=== PATIENT | male | born 1970 | race Caucasian/White ===

== ENCOUNTER 2019-01-03 04:26 | Emergency (ER) | payer OTHER ==
[~2019-01-03] VITALS: Ht 180.3 cm; Wt 87.7 kg
[~2019-01-03 04:26] MED LIST: LISI-600 PO
[2019-01-03] MEDS ORDERED: normal saline 1000ML IV soln IVB ONE (04:40)
[2019-01-03] MEDS ORDERED: ketorolac tromethamine 15mg/ml inj. IV ONE (04:40)
[2019-01-03 04:59] LABS: BASOPHILS % (AUTO) 0.1 % (0-1); EOSINOPHILS % (AUTO) 0.2 % (0-6); HEMATOCRIT 43.2 % (42.0-52.0); HEMOGLOBIN 14.9 g/dl (14.0-17.9); LYMPHOCYTES # (AUTO) 0.9 X10'3 (1.1-4.8); MEAN CORPUSCULAR HEMOGLOBIN 32.6 PG (27.0-31.0); MEAN CORPUSCULAR HGB CONC 34.6 g/dL (33.0-36.5); MEAN CORPUSCULAR VOLUME 94.1 FL (78-98); MEAN PLATELET VOLUME 7.3 FL (7.4-10.4); MONOCYTES # (AUTO) 0.7 X10'3 (0-0.9); MONOCYTES % (AUTO) 6.7 % (2-12); NEUTROPHILS # (AUTO) 8.8 X10'3 (1.8-7.7); PLATELET COUNT 213 X10'3 (140-440); RED BLOOD COUNT 4.58 X10'6 (4.70-6.10); RED CELL DISTRIBUTION WIDTH 13.8 % (11.5-14.5); WHITE BLOOD COUNT 10.4 X10'3 (4.5-11.0)
[2019-01-03] MEDS ORDERED: morphine 4 MG/ML inj SYRINge IV ONE (05:00)
[2019-01-03 05:18] LABS: ALANINE AMINOTRANSFERASE 57 U/L (12-78); ALBUMIN 4.1 G/DL (3.4-5.0); ALBUMIN/GLOBULIN RATIO 1.1 (1.1-1.5); ALKALINE PHOSPHATASE 114 IU/L (46-116); ANION GAP 14 (8-16); ASPARTATE AMINO TRANSFERASE 48 U/L (10-37); BILIRUBIN,TOTAL 1.4 MG/DL (0.1-1.0); BLOOD UREA NITROGEN 8 MG/DL (7-18); BUN/CREATININE RATIO 6.3 (5.4-32.0); CALCIUM 9.2 MG/DL (8.5-10.1); CHLORIDE 94 MMOL/L (99-107); CREATININE 1.27 MG/DL (0.60-1.10); GLUCOSE 224 MG/DL (70-104); POTASSIUM 3.4 MMOL/L (3.5-5.1); SODIUM 134 MMOL/L (135-145); TOTAL CARBON DIOXIDE 25.9 MMOL/L (24-32); eGFR 60 ML/MIN
[2019-01-03 05:19] LABS: ETHANOL < 0.010 GM/DL (0.0-0.010); MAGNESIUM 1.7 MG/DL (1.5-2.4)
[2019-01-03 05:20] LABS: LIPASE 1882 U/L (73-393)
[2019-01-03] MEDS: morphine 2 MG/ML inj. syringe IV PRN ×3 (05:28→06:07)
[2019-01-03] MEDS ORDERED: magnesium 2GM in 50ml NS 50 ML IV ONE (05:35)
[2019-01-03] MEDS ORDERED: potassium Cl 10 mEq/100mL bag IV ONE (05:35)
[2019-01-03] MEDS ORDERED: LISI1TAB29 PO (06:01)
[2019-01-03 07:09] VITALS: BP 119/84
[2019-01-03] MEDS ORDERED: CHLO25CA10 PO (07:30)
[2019-01-03] MEDS ORDERED: chlordiazePOXIDE 25mg capsule PO ONE (07:30)
== END 2019-01-03 07:43 | disposition home or self-care (01) ==
LOC: ER 04:26
DX: K85.90 Acute pancreatitis without necrosis or infection, unspecified (principal); I10 Essential (primary) hypertension; R00.0 Tachycardia, unspecified; Z79.899 Other long term (current) drug therapy; Z87.19 Personal history of other diseases of the digestive system
CPT/HCPCS: 36415; 70496; 80053; 80320; 83690; 83735; 85025; 96365; 96366; 96375; 96376; 99284; J1885; J2270; J3475; J3480; J7030

== ENCOUNTER 2019-05-02 15:33 | Emergency (ER) | payer OTHER ==
[~2019-05-02] VITALS: Ht 180.3 cm; Wt 85.8 kg
[~2019-05-02 15:33] MED LIST changes: +CHLO25CA10 PO; -LISI-600 PO; +LISI1TAB29 PO
[2019-05-02] MEDS ORDERED: normal saline 1000ML IV soln IVB ONE (16:05)
[2019-05-02] MEDS ORDERED: ondansetron/PF 4mg/2ml inj IV ONE (16:05)
[2019-05-02] MEDS ORDERED: ketorolac trometh. 30mg/ml inj. IV ONE (16:05)
[2019-05-02] MEDS ORDERED: famotidine/PF 10 mg/ml inj IV ONE (16:05)
[2019-05-02 16:18] LABS: BASOPHILS % (AUTO) 0.5 % (0-1); EOSINOPHILS # (AUTO) 0.1 X10'3 (0-0.9); EOSINOPHILS % (AUTO) 0.8 % (0-6); HEMATOCRIT 45.3 % (42.0-52.0); HEMOGLOBIN 15.9 g/dl (14.0-17.9); LYMPHOCYTES # (AUTO) 1.5 X10'3 (1.1-4.8); LYMPHOCYTES % (AUTO) 17.9 % (21-51); MEAN CORPUSCULAR HEMOGLOBIN 32.2 PG (27.0-31.0); MEAN PLATELET VOLUME 6.3 FL (7.4-10.4); MONOCYTES # (AUTO) 0.5 X10'3 (0-0.9); MONOCYTES % (AUTO) 5.4 % (2-12); NEUTROPHILS # (AUTO) 6.4 X10'3 (1.8-7.7); NEUTROPHILS % (AUTO) 75.4 % (42-75); PLATELET COUNT 265 X10'3 (140-440); RED BLOOD COUNT 4.93 X10'6 (4.70-6.10); RED CELL DISTRIBUTION WIDTH 13.8 % (11.5-14.5); WHITE BLOOD COUNT 8.5 X10'3 (4.5-11.0)
[2019-05-02 16:39] LABS: ALANINE AMINOTRANSFERASE 99 U/L (12-78); ALBUMIN 4.4 G/DL (3.4-5.0); ALBUMIN/GLOBULIN RATIO 1.1 (1.1-1.5); ALKALINE PHOSPHATASE 118 IU/L (46-116); ANION GAP 15 (8-16); ASPARTATE AMINO TRANSFERASE 172 U/L (10-37); BILIRUBIN,TOTAL 1.4 MG/DL (0.1-1.0); BLOOD UREA NITROGEN 20 MG/DL (7-18); BUN/CREATININE RATIO 14.2 (5.4-32.0); CALCIUM 9.9 MG/DL (8.5-10.1); CHLORIDE 94 MMOL/L (99-107); CREATININE 1.41 MG/DL (0.60-1.10); GLUCOSE 190 MG/DL (70-104); LIPASE 445 U/L (73-393); SODIUM 133 MMOL/L (135-145); TOTAL CARBON DIOXIDE 23.6 MMOL/L (24-32); TOTAL PROTEIN 8.4 G/DL (6.4-8.2); eGFR 53 ML/MIN
[2019-05-02 16:47] LABS: POTASSIUM 3.6 MMOL/L (3.5-5.1)
[2019-05-02] MEDS: morphine 4 MG/ML inj SYRINge IV PRN ×2 (17:10→18:17)
[2019-05-02 17:11] LABS: CLARITY,URINE CLEAR (Clear); COLOR,URINE YELLOW (Yellow); GLUCOSE, URINE NEGATIVE (Neg); KETONES,URINE TRACE mg/dl (Neg); LEUKOCYTE ESTERASE ,URINE NEGATIVE (Neg); NITRITES, URINE NEGATIVE (Neg); OCCULT BLOOD,URINE NEGATIVE (Neg); PH,URINE 6.5 (4.8-8.0); PROTEIN,URINE NEGATIVE (Neg); UA COLLECTION TYPE CLN CATCH MIDSTREAM; UROBILINOGEN,URINE 0.2 E.U/dL (0.2-1.0)
[2019-05-02 18:38] VITALS: BP 152/102
== END 2019-05-02 18:40 | disposition home or self-care (01) ==
LOC: ER 15:33
DX: K85.90 Acute pancreatitis without necrosis or infection, unspecified (principal); E86.0 Dehydration; N28.9 Disorder of kidney and ureter, unspecified; M54.5 Low back pain; I10 Essential (primary) hypertension; Z88.5 Allergy status to narcotic agent; Z79.899 Other long term (current) drug therapy
CPT/HCPCS: 36415; 80053; 81003; 83690; 85025; 96361; 96374; 96375; 96376; 99284; J1885; J2270; J2405; J3490; J7030

== ENCOUNTER 2019-05-03 08:46 | Inpatient (IN) | payer OTHER ==
[~2019-05-03] VITALS: Ht 180.3 cm; Wt 79.9 kg
[2019-05-03] MEDS ORDERED: normal saline 1000ML IV soln IVB ONE ×2 (09:20→10:05)
[2019-05-03 09:21] LABS: BASOPHILS % (AUTO) 0.6 % (0-1); EOSINOPHILS # (AUTO) 0.1 X10'3 (0-0.9); EOSINOPHILS % (AUTO) 1.6 % (0-6); HEMATOCRIT 41.4 % (42.0-52.0); HEMOGLOBIN 14.3 g/dl (14.0-17.9); LYMPHOCYTES # (AUTO) 1.6 X10'3 (1.1-4.8); LYMPHOCYTES % (AUTO) 24.3 % (21-51); MEAN CORPUSCULAR HEMOGLOBIN 32.1 PG (27.0-31.0); MEAN CORPUSCULAR HGB CONC 34.6 g/dL (33.0-36.5); MEAN CORPUSCULAR VOLUME 92.8 FL (78-98); MEAN PLATELET VOLUME 6.7 FL (7.4-10.4); MONOCYTES # (AUTO) 0.5 X10'3 (0-0.9); MONOCYTES % (AUTO) 6.9 % (2-12); NEUTROPHILS # (AUTO) 4.4 X10'3 (1.8-7.7); NEUTROPHILS % (AUTO) 66.6 % (42-75); PLATELET COUNT 208 X10'3 (140-440); RED BLOOD COUNT 4.46 X10'6 (4.70-6.10); RED CELL DISTRIBUTION WIDTH 13.9 % (11.5-14.5); WHITE BLOOD COUNT 6.6 X10'3 (4.5-11.0)
--- NOTE | 2019-05-03 09:25 | NUR ---
provider in with patient, vitals updated and fluid bolus started, will wait for med orders
[2019-05-03 09:30] LABS: ALANINE AMINOTRANSFERASE 73 U/L (12-78); ALBUMIN 4.1 G/DL (3.4-5.0); ALBUMIN/GLOBULIN RATIO 1.1 (1.1-1.5); ALKALINE PHOSPHATASE 113 IU/L (46-116); ANION GAP 15 (8-16); ASPARTATE AMINO TRANSFERASE 92 U/L (10-37); BILIRUBIN,TOTAL 1.4 MG/DL (0.1-1.0); BLOOD UREA NITROGEN 11 MG/DL (7-18); BUN/CREATININE RATIO 8.1 (5.4-32.0); CALCIUM 8.8 MG/DL (8.5-10.1); CHLORIDE 97 MMOL/L (99-107); CREATININE 1.35 MG/DL (0.60-1.10); GLUCOSE 226 MG/DL (70-104); POTASSIUM 3.1 MMOL/L (3.5-5.1); SODIUM 138 MMOL/L (135-145); TOTAL CARBON DIOXIDE 26.1 MMOL/L (24-32); TOTAL PROTEIN 7.7 G/DL (6.4-8.2); eGFR 56 ML/MIN
[2019-05-03 09:31] LABS: AMYLASE 62 U/L (25-115)
[2019-05-03] MEDS ORDERED: morphine 4 MG/ML inj SYRINge IV ONE (09:35)
--- NOTE | 2019-05-03 09:41 | NUR ---
asked patient to give ua patient is to painful will ask again after pain meds
[2019-05-03 09:42] LABS: LIPASE 2244 U/L (73-393)
[2019-05-03] MEDS ORDERED: morphine 2 MG/ML inj. syringe IV ONE (10:00)
--- NOTE | 2019-05-03 10:08 | NUR ---
provider ordered mor morphine patients pain still 10/10, gurading abdomin and grimicing
[2019-05-03 11:05] LABS: CLARITY,URINE CLEAR (Clear); COLOR,URINE YELLOW (Yellow); GLUCOSE, URINE 250 mg/dl (Neg); KETONES,URINE 40 mg/dl (Neg); LEUKOCYTE ESTERASE ,URINE NEGATIVE (Neg); NITRITES, URINE NEGATIVE (Neg); OCCULT BLOOD,URINE TRACE-INTACT (Neg); PROTEIN,URINE NEGATIVE (Neg); UROBILINOGEN,URINE 0.2 E.U/dL (0.2-1.0)
[2019-05-03 11:06] LABS: UA COLLECTION TYPE URINAL
[2019-05-03] MEDS ORDERED: magnesium hydroxide 30ml (MOM) UD suspension PO PRN (11:30)
[2019-05-03] MEDS ORDERED: thiamine 100mg/ml 2ml inj. IV ONE (11:30)
[2019-05-03] MEDS ORDERED: ondansetron/PF 4mg/2ml inj IV PRN (11:30)
[2019-05-03] MEDS ORDERED: morphine 2 MG/ML inj. syringe IV PRN (11:30)
[2019-05-03] MEDS ORDERED: acetaminophen 325mg tablet PO PRN (11:30)
[2019-05-03] MEDS ORDERED: mag hydrox/Alum hydrox/simeth 30ml oral suspension PO PRN (11:30)
[2019-05-03] MEDS ORDERED: dextrose 50%-water 50ml dispensing syringe IV PRN (11:30)
[2019-05-03 11:36] LABS: BACTERIA,URINE NONE SEEN /HPF (Neg); MUCUS STRANDS NONE SEEN /LPF (Neg); RBC,URINE 0-2 /HPF (0-2); SQUAMOUS EPITHELIAL CELL,UR FEW /LPF (FEW); WBC,URINE NONE SEEN /HPF (0-4)
[2019-05-03] MEDS ORDERED: potassium Cl 20 mEq SR tablet PO PRN ×2 (11:45)
[2019-05-03] MEDS: K and/or MAG REPLACEMENT MC SCH ×2 (11:45→19:10)
[2019-05-03] MEDS: normal saline 1000ml 1,000 ML IV SCH ×4 (12:16→23:44)
[2019-05-03] MEDS: LORazepam 2 mg/ml vial IV PRN ×4 (12:16→23:45)
[2019-05-03 13:45] VITALS: BP 141/86
[2019-05-03] MEDS: morphine 2 MG/ML inj. syringe IV PRN ×2 (15:11→19:20)
[2019-05-03] MEDS: potassium CL 10mEq/100ml bag 100 ML IV PRN ×4 (16:50→22:00)
[2019-05-03 16:58] LABS: MAGNESIUM 1.9 MG/DL (1.5-2.4)
--- NOTE | 2019-05-03 17:47 | NUR ---
PAGER ID: [phone] MESSAGE: [facility] [id number] Re: Alivia DavisB wants pain medication more often
--- NOTE | 2019-05-03 18:08 | NUR ---
Problems reprioritized. Patient report given, questions answered & plan of care reviewed with Prerna REA.
--- NOTE | 2019-05-03 18:10 | NUR ---
Patient in room [facility]. I have received report from ÁLVARO Gaona and had the opportunity to ask questions and assume patient care. Patient is awake and alert on room air, in no apparent distress. Will continue to monitor.
--- NOTE | 2019-05-03 18:13 | NUR ---
Problems reprioritized. Patient report given, questions answered & plan of care reviewed with Tayler REA. Addendum: 05/03/19 at 1815 by Candelaria Davalos RN correction report given to Prerna REA
[2019-05-03 19:00] VITALS: BP 155/91
[2019-05-03] MEDS: heparin, porcine 5000 units/ml vial SQ SCH (19:22)
[2019-05-03 23:26] VITALS: BP 162/89
--- NOTE | 2019-05-03 23:40 | NUR ---
Patient wanted to leave AMA and then changed his mind and verbalized " I feel safer to stay the night and leave in the morning. Thats better." Notified Hospitalist Dr. Lobato. Charge Nurse aware. Will continue to monitor.
[2019-05-04] MEDS: morphine 2 MG/ML inj. syringe IV PRN ×4 (01:20→19:28)
[2019-05-04 05:08] LABS: BASOPHILS % (AUTO) 0.3 % (0-1); EOSINOPHILS # (AUTO) 0.1 X10'3 (0-0.9); EOSINOPHILS % (AUTO) 0.7 % (0-6); HEMATOCRIT 34.4 % (42.0-52.0); HEMOGLOBIN 12.2 g/dl (14.0-17.9); LYMPHOCYTES # (AUTO) 1.2 X10'3 (1.1-4.8); MEAN CORPUSCULAR HEMOGLOBIN 32.7 PG (27.0-31.0); MEAN CORPUSCULAR HGB CONC 35.3 g/dL (33.0-36.5); MEAN CORPUSCULAR VOLUME 92.6 FL (78-98); MEAN PLATELET VOLUME 7.2 FL (7.4-10.4); MONOCYTES # (AUTO) 0.4 X10'3 (0-0.9); MONOCYTES % (AUTO) 6.3 % (2-12); NEUTROPHILS # (AUTO) 5.3 X10'3 (1.8-7.7); NEUTROPHILS % (AUTO) 75.7 % (42-75); PLATELET COUNT 149 X10'3 (140-440); RED BLOOD COUNT 3.72 X10'6 (4.70-6.10); RED CELL DISTRIBUTION WIDTH 13.7 % (11.5-14.5)
[2019-05-04 05:26] LABS: ALANINE AMINOTRANSFERASE 42 U/L (12-78); ALKALINE PHOSPHATASE 77 IU/L (46-116); ANION GAP 9 (8-16); ASPARTATE AMINO TRANSFERASE 46 U/L (10-37); BILIRUBIN,TOTAL 0.9 MG/DL (0.1-1.0); BLOOD UREA NITROGEN 4 MG/DL (7-18); BUN/CREATININE RATIO 4.2 (5.4-32.0); CALCIUM 7.9 MG/DL (8.5-10.1); CHLORIDE 100 MMOL/L (99-107); CREATININE 0.95 MG/DL (0.60-1.10); GLUCOSE 182 MG/DL (70-104); MAGNESIUM 1.6 MG/DL (1.5-2.4); POTASSIUM 3.5 MMOL/L (3.5-5.1); SODIUM 135 MMOL/L (135-145); TOTAL PROTEIN 6.1 G/DL (6.4-8.2); eGFR 84 ML/MIN
--- NOTE | 2019-05-04 06:53 | NUR ---
Problems reprioritized. Patient report given, questions answered & plan of care reviewed with ÁLVARO Alexis.
[2019-05-04 07:00] VITALS: BP 144/78
--- NOTE | 2019-05-04 07:02 | NUR ---
Patient in room [facility]. I have received report from ÁLVARO Graff and had the opportunity to ask questions and assume patient care.
[2019-05-04] MEDS: K and/or MAG REPLACEMENT MC SCH ×2 (07:26→19:30)
[2019-05-04] MEDS ORDERED: thiamine 100mg/ml 2ml inj. IV SCH (08:00)
[2019-05-04] MEDS ORDERED: folic acid 1mg/0.2ml inj IV SCH (08:00)
[2019-05-04] MEDS: LORazepam 2 mg/ml vial IV PRN ×6 (08:27→23:39)
[2019-05-04] MEDS: MVI, adult No.4 with vit. K 10 ML in dextrose 5% water 500ml 500 ML IV SCH ×2 (08:28)
[2019-05-04] MEDS: heparin, porcine 5000 units/ml vial SQ SCH ×2 (08:28→19:28)
[2019-05-04] MEDS: normal saline 1000ml 1,000 ML IV SCH ×2 (09:52→17:28)
[2019-05-04 11:00] VITALS: BP 140/88
[2019-05-04] MEDS: lisinopril 20mg tablet PO SCH (11:27)
[2019-05-04 18:00] VITALS: BP 134/89
--- NOTE | 2019-05-04 18:14 | NUR ---
Received report from ÁLVARO Alexis. Patient is awake and alert on room air, in no apparent distress. Call light and items of frequent use within reach. Will continue to monitor.
--- NOTE | 2019-05-04 18:18 | NUR ---
Problems reprioritized. Patient report given, questions answered & plan of care reviewed with ÁLVARO Graff.
[2019-05-05] VITALS: BP 121/83
[2019-05-05] MEDS: normal saline 1000ml 1,000 ML IV SCH (04:40)
[2019-05-05] MEDS: LORazepam 1 MG tablet PO PRN ×2 (04:41→08:21)
[2019-05-05] MEDS: morphine 2 MG/ML inj. syringe IV PRN ×2 (04:41→08:55)
--- NOTE | 2019-05-05 06:05 | NUR ---
Patient in room [facility]. I have received report from ÁLVARO ALICIA and had the opportunity to ask questions and assume patient care.
--- NOTE | 2019-05-05 06:05 | NUR ---
Problems reprioritized. Patient report given, questions answered & plan of care reviewed with ÁLVARO Hampton.
[2019-05-05 06:43] LABS: BASOPHILS % (AUTO) 0.4 % (0-1); EOSINOPHILS # (AUTO) 0.3 X10'3 (0-0.9); HEMATOCRIT 31.1 % (42.0-52.0); HEMOGLOBIN 11.1 g/dl (14.0-17.9); LYMPHOCYTES # (AUTO) 1.6 X10'3 (1.1-4.8); LYMPHOCYTES % (AUTO) 29.4 % (21-51); MEAN CORPUSCULAR HEMOGLOBIN 33.3 PG (27.0-31.0); MEAN CORPUSCULAR HGB CONC 35.6 g/dL (33.0-36.5); MEAN CORPUSCULAR VOLUME 93.6 FL (78-98); MEAN PLATELET VOLUME 7.3 FL (7.4-10.4); MONOCYTES # (AUTO) 0.4 X10'3 (0-0.9); MONOCYTES % (AUTO) 8.4 % (2-12); NEUTROPHILS % (AUTO) 56.8 % (42-75); PLATELET COUNT 123 X10'3 (140-440); RED BLOOD COUNT 3.33 X10'6 (4.70-6.10); RED CELL DISTRIBUTION WIDTH 13.6 % (11.5-14.5); WHITE BLOOD COUNT 5.3 X10'3 (4.5-11.0)
[2019-05-05 07:00] VITALS: BP_SYST 127; BP_SYST 134; BP_SYST 91; BP_DIAS 51; BP_DIAS 54; BP_DIAS 85
[2019-05-05 07:01] LABS: ALANINE AMINOTRANSFERASE 30 U/L (12-78); ALBUMIN 2.6 G/DL (3.4-5.0); ALBUMIN/GLOBULIN RATIO 0.8 (1.1-1.5); ALKALINE PHOSPHATASE 68 IU/L (46-116); ANION GAP 7 (8-16); ASPARTATE AMINO TRANSFERASE 27 U/L (10-37); BLOOD UREA NITROGEN 4 MG/DL (7-18); CALCIUM 7.9 MG/DL (8.5-10.1); CHLORIDE 105 MMOL/L (99-107); GLUCOSE 131 MG/DL (70-104); MAGNESIUM 1.8 MG/DL (1.5-2.4); POTASSIUM 3.2 MMOL/L (3.5-5.1); SODIUM 140 MMOL/L (135-145); TOTAL CARBON DIOXIDE 28.3 MMOL/L (24-32); TOTAL PROTEIN 5.8 G/DL (6.4-8.2); eGFR > 90 ML/MIN
[2019-05-05] MEDS: MVI, adult No.4 with vit. K 10 ML in dextrose 5% water 500ml 500 ML IV SCH ×2 (08:19)
[2019-05-05] MEDS: heparin, porcine 5000 units/ml vial SQ SCH (08:20)
[2019-05-05] MEDS: lisinopril 20mg tablet PO SCH (08:20)
[2019-05-05] MEDS ORDERED: thiamine inj. 100 MG in normal saline 100ml IV soln 100 ML IV SCH (08:30)
[2019-05-05] MEDS ORDERED: folic acid 1mg tablet PO SCH (09:01)
[2019-05-05] MEDS ORDERED: multivitamins, therapeutics tablet PO SCH (09:01)
[2019-05-05] MEDS ORDERED: thiamine 100mg tablet PO SCH (09:02)
[2019-05-05] MEDS ORDERED: LISI-600 PO (10:24)
[2019-05-05] MEDS ORDERED: ONDA4TAB6 PO (10:24)
[2019-05-05] MEDS ORDERED: thiamine tablet PO (10:24)
[2019-05-05] MEDS ORDERED: MULT-1179 PO (10:24)
[2019-05-05] MEDS ORDERED: folic acid tablet PO (10:24)
[2019-05-05 11:00] VITALS: BP 143/92
[2019-05-05] MEDS ORDERED: LORazepam 2 mg/ml vial IV PRN (11:30)
--- NOTE | 2019-05-05 14:35 | NUR ---
PATIENT STABLE AND APPROPRIATE FOR DISCHARGE, TELE TAKEN OFF, IV TAKEN OUT, EDUCATION GIVEN, ALL BELONGINGS SENT WITH PATIENT, MEDS CALLED IN TO PREFERRED PHARMACY, PATIENT WALKED DOWN TO LOBBY BY AN AIDE TO AN AWAITING CAR WHERE FRIEND/FAMILY MEMBER WILL TAKE PATIENT HOME
[2019-05-07] MEDS ORDERED: LORazepam 2 mg/ml vial IV PRN (11:30)
[2019-05-07] MEDS ORDERED: LORazepam 1 MG tablet PO PRN (11:30)
== END 2019-05-05 12:20 | disposition home or self-care (01) | DRG 440 ==
LOC: ER 08:46 → ED HOLD 11:27 → SUR 3N 13:06
PROVIDERS: ADMIT Family Medicine; ATTEND Internal Medicine
DX: K85.20 Alcohol induced acute pancreatitis without necrosis or infection (principal); I10 Essential (primary) hypertension; K86.0 Alcohol-induced chronic pancreatitis; E87.6 Hypokalemia; F10.20 Alcohol dependence, uncomplicated; Y90.9 Presence of alcohol in blood, level not specified
CPT/HCPCS: 36415; 76700; 80053; 81001; 82150; 83690; 83735; 85025; 87081; 96361; 96374; 99285; G0378; J1644; J2060; J2270; J2405; J3411; J3480; J3490; J7030; J7060